=== PATIENT | male | born 1975 | race African-American/Black ===

== ENCOUNTER 2025-02-24 15:42 | Emergency (ER) | payer SELFPAY ==
[2025-02-24 15:49] VITALS: BP 154/89; PULSE 66; RESP 20; TEMP 98.2; BMI 18.5
[2025-02-24] MEDS ORDERED: IBUPROFEN 600 MG TABLET (FP) PO ONE (16:28)
[2025-02-24] MEDS: IBUPROFEN 600 MG TABLET (FP) PO ONE (16:33)
== END 2025-02-24 16:34 | disposition home or self-care (01) ==
LOC: JERFT 15:42
DX: M17.11 Unilateral primary osteoarthritis, right knee (principal); M25.561 Pain in right knee; M54.50 Low back pain, unspecified
CPT/HCPCS: 73560-TC-RT-FY; 99283-25